=== PATIENT | male | born 1995 | race Caucasian/White ===

== ENCOUNTER 2018-03-26 21:23 | Emergency (ER) | payer OTHER ==
[~2018-03-26] VITALS: Ht 170.2 cm; Wt 47.6 kg
--- NOTE | ~2018-03-26 | EKG ---
[place] [address] [facility] [place] [employer] [address] ELECTROCARDIOGRAM REPORT Name: HAMILTON CHAUDHARI Room #: DEP Annia#: [id number] Admission: 03/26/18 Attend Phys: Discharge: 03/26/18 Date of : [birth year] Report #: [id number] THIS REPORT FOR: //name// [facility] ED Test Date: 2018-03-26 Test Time: 21:57:28 Pat Name: HAMILTON CHAUDHARI Department: Room: Gender: First [employer] Feeder: ELISHA : 1995 Requested By: Loren Roldan Order Number: [id number] MD: James Brown Measurements Intervals [place] Rate: 77 P: 13 W[place]: 152 QRS: -39 QRSD: 109 T: 67 QT: 384 QTc: 435 Interpretive Statements Sinus rhythm Left axis deviation RSR' in V1 or V2, probably normal variant No previous ECG available for comparison Electronically Signed On 03-27-2018 11:33:04 CDT by James Brown [email or web address] <ELECTRONICALLY SIGNED> By: James Brown MD, [facility] 03/27/18 1133 [id number] 56 James Brown MD, FACC /EPI
--- NOTE | ~2018-03-26 | EKG ---
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: [employer] : 1995 Requested By: Loren Roldan Order Number: [id number] MD: James Brown Measurements Intervals [place] Rate: 66 P: 27 [place]: 151 QRS: -39 QRSD: 105 T: 67 QT: 391 QTc: 410 Interpretive Statements Sinus arrhythmia Left axis deviation RSR' in V1 or V2, probably normal variant Compared to ECG 03/26/2018 21:57:28 no significant change was found Electronically Signed On 03-28-2018 8:24:06 CDT by James Brown [email or web address] <ELECTRONICALLY SIGNED> By: James Brown MD, [facility] 03/28/1824 04 04 James Brown MD, [facility] /EPI
[2018-03-26 22:06] LABS: CALCIUM 10.1 mg/dL (8.5-10.1); POTASSIUM 3.3 mmol/L (3.5-5.1)
[2018-03-26 22:09] LABS: ALBUMIN 4.8 g/dL (3.4-5.0); HEMATOCRIT 51.6 % (42.0-52.0); HEMOGLOBIN 18.3 gm/dL (14.0-18.0); MCH 31.5 pg (26.0-34.0); MCHC 35.5 g/dL (28.0-37.0); MCV 88.9 fL (80.0-100.0); PLATELET COUNT 343 thou/uL (150-400); WBC 5.7 thou/uL (4.0-11.0)
[2018-03-26 22:39] LABS: ANISOCYTOSIS 1+
[2018-03-26 23:56] VITALS: BP 132/91
== END 2018-03-26 23:55 | disposition home or self-care (01) ==
LOC: ER 21:23
PROVIDERS: Student in an Organized Health Care Education/Training Program
DX: E87.6 Hypokalemia (principal); F10.239 Alcohol dependence with withdrawal, unspecified

== ENCOUNTER → 2020-06-12 | Outpatient (CLI) | payer OTHER | LOC: LAB 09:23 | PROVIDERS: ATTEND Family Medicine | DX: R50.9 Fever, unspecified (principal); Z20.828 Contact with and (suspected) exposure to other viral communicable diseases ==

== ENCOUNTER 2021-06-18 11:32 | Emergency (ER) | payer OTHER ==
[~2021-06-18] VITALS: Ht 175.3 cm; Wt 54.4 kg
[2021-06-18 11:33] VITALS: BP 116/71
== END 2021-06-18 11:58 | disposition home or self-care (01) ==
LOC: ER 11:32
DX: U07.1 COVID-19 (principal)